=== PATIENT | male | born 1995 | race Caucasian/White ===

== ENCOUNTER 2021-03-24 18:13 | Emergency (ER) | payer SELFPAY ==
[~2021-03-24] VITALS: Ht 165.1 cm; Wt 74.0 kg
[2021-03-24] MEDS ORDERED: MORPHINE SULFATE 4 MG/ML CPJ (NOT FOR IM USE) IV ONE (19:00)
[2021-03-24] MEDS ORDERED: IBUP-2029 MT (20:13)
[2021-03-24] MEDS ORDERED: ACET650T37 MT (20:14)
[2021-03-24 21:00] VITALS: BP 131/83
== END 2021-03-24 21:26 | disposition home or self-care (01) ==
LOC: ER 18:13
DX: S00.83XA Contusion of other part of head, initial encounter (principal); S00.01XA Abrasion of scalp, initial encounter; F17.210 Nicotine dependence, cigarettes, uncomplicated; Y00.XXXA Assault by blunt object, initial encounter; Y93.89 Activity, other specified; Y92.018 Other place in single-family (private) house as the place of occurrence of the external cause
CPT/HCPCS: 70450; 70486; 71101; 96374; 99285; J2270